=== PATIENT | male | born 1995 | race Caucasian/White ===

== ENCOUNTER 2019-09-17 23:11 | Inpatient (IN) ==
[2019-09-18] MEDS: 0.9 % Sodium Chloride 1,000 ML IVC SCH ×2 (00:55→04:55)
[2019-09-18] MEDS ORDERED: Naloxone 0.4 MG/ML INJ IVP PRN (01:38)
[2019-09-18 02:57] LABS: Basophils % 0.4 %; Eosinophils # 0.1 K/mcL (0.0-0.6); Eosinophils % 1.8 %; Hematocrit 24.3 % (37.5-50.1); Immature Granulocytes % 1.3 % (0-4); Lymphocytes # 1.4 K/mcL (0.6-4.6); Lymphocytes % 19.7 %; Mean Corpuscular HGB Conc 32.9 g/dL (31.6-35.5); Mean Corpuscular Hemoglobin 29.7 pg (28.0-33.3); Mean Corpuscular Volume 90.3 fL (83.0-100.0); Monocytes # 0.8 K/mcL (0.0-1.3); Monocytes % 11.3 %; Neutrophils # 4.7 K/mcL (1.6-8.9); Platelet Count 111 K/mcL (140-400); Red Blood Count 2.69 M/mcL (4.19-5.50); Red Cell Distribution Width 13.4 % (11.5-14.5); Segmented Neutrophils % 65.5 %; White Blood Count 7.1 K/mcL (4.3-11.1)
[2019-09-18 03:03] LABS: Calcium 7.2 mg/dL (8.6-10.3); Potassium 4.8 mEq/L (3.5-5.1)
[2019-09-18 03:05] LABS: C-Reactive Protein 124 mg/L (Less than 10); Creatine Kinase 10 Units/L (30-223)
[2019-09-18] MEDS ORDERED: Acetaminophen 325 MG TABLET PO ONE (06:37)
[2019-09-18] MEDS ORDERED: Piperacillin/Tazobactam 3.375 GM in 0.9 % Sodium Chloride Mini Bag 100 ML IVPB SCH (08:00)
[2019-09-18 08:26] LABS: Bilirubin,Urine Negative (Negative); Blood,Urine Large (Negative); Clarity,Urine Cloudy (Clear); Color,Urine Yellow (Yellow); Glucose,Urine (UA) Normal (Normal); Ketones,Urine Negative (Negative); Leukocyte Esterase,Urine Small (Negative); Nitrite,Urine Negative (Negative); Protein,Urine 100 mg/dL (Neg-Trace); Specific Gravity,Urine 1.013 (1.010-1.025); Urobilinogen,Urine Normal (Normal)
[2019-09-18 08:29] LABS: Hyaline Casts,Urine None Seen per lpf (None-Few); Squamous Epithelial Cell,Urine None Seen per lpf (None-Few); WBC,Urine 0-3 per hpf (0-3)
[2019-09-18 08:40] LABS: Sodium, Urine 15.4 mEq/L
[2019-09-18 08:46] LABS: Amorphous Sediment,Urine Few per hpf (Few); Bacteria,Urine Few per hpf (None-Few)
[2019-09-18 09:52] LABS: Calcium 7.2 mg/dL (8.6-10.3)
[2019-09-18] MEDS ORDERED: 0.9 % Sodium Chloride 1,000 ML IVC ONE (10:59)
[2019-09-18 11:29] LABS: INR 1.2; Prothrombin Time 13.8 Seconds (9.4-12.1)
[2019-09-18 11:42] LABS: % Iron Saturation 21 % (20-55); Iron 27 mcg/dL (65-175); Lactate Dehydrogenase 128 Units/L (140-271); Transferrin 92 mg/dL (203-362)
[2019-09-18] MEDS ORDERED: Cefepime HCl 1,000 MG in Water for inj. (sterile) 10 ML IVP SCH (18:00)
[2019-09-18] MEDS ORDERED: *HR* Heparin 5,000 UNIT/ML VIAL SQ SCH (18:00)
[2019-09-18 19:30] VITALS: BP 122/84
[2019-09-18] MEDS ORDERED: Aminoglycoside Consult 1 EACH MC ONE (20:59)
[2019-09-19 04:22] LABS: Acinetobacter baumannii by PCR Not Detected (Not Detect); Candida albicans by PCR Not Detected (Not Detect); Candida glabrata by PCR Not Detected (Not Detect); Candida krusei by PCR Not Detected (Not Detect); Candida parapsilosis by PCR Not Detected (Not Detect); Candida tropicalis by PCR Not Detected (Not Detect); Enterobacter cloacae Cmplx PCR Not Detected (Not Detect); Enterobacteriaceae by PCR Not Detected (Not Detect); Enterococcus by PCR Not Detected (Not Detect); Escherichia coli by PCR Not Detected (Not Detect); Klebsiella oxytoca by PCR Not Detected (Not Detect); Klebsiella pneumoniae by PCR Not Detected (Not Detect); Proteus by PCR Not Detected (Not Detect); Pseudomonas aeruginosa by PCR Not Detected (Not Detect); Serratia marcescens by PCR Not Detected (Not Detect); Staphylococcus aureus by PCR DETECTED (Not Detect); Streptococcus agalactiae(B)PCR Not Detected (Not Detect); Streptococcus by PCR Not Detected (Not Detect); Streptococcus pneumoniae PCR Not Detected (Not Detect); Streptococcus pyogenes (A) PCR Not Detected (Not Detect); mecA Methicillin-Resist Gene Not Detected (Not Detect)
== END 2019-09-18 21:00 | disposition other institution (70) | DRG 720 ==
LOC: 2NNU
PROVIDERS: ADMIT Student in an Organized Health Care Education/Training Program; ATTEND Student in an Organized Health Care Education/Training Program